=== PATIENT | female | born 1955 | race Caucasian/White ===

== ENCOUNTER 2020-09-19 10:05 | Emergency (ER) | payer BC ==
[~2020-09-19 10:05] MED LIST: ASPIRIN325 MG PO; BUSPIRONE HCL5 MG PO; FENOFIBRATE134 MG PO; LEVOTHYROXINE75 MCG PO; LISINOPRIL10 MG PO; MELOXICAM7.5 MG PO; MONTELUKAST SOD10 MG PO; NITROSTAT0.4 MG SL; NORVASC 5 MG TAB5 MG PO; PAXIL20 MG PO; PREMARIN0.3 MG PO; PRILOSEC OTC20 MG PO; TRAMADOL HCL50 MG PO; VYTORIN 10-801 EACH PO; ZANTAC150 MG PO
[2020-09-19 10:59] LABS: BUN/CREATININE RATIO 17 (0-10)
[2020-09-19 12:15] LABS: HEMOGLOBIN 14.7 gm/dl (12.3-15.3); RED BLOOD COUNT 4.88 M/UL (4.00-5.10)
[2020-09-19] MEDS ORDERED: ZOFRAN4 MG PO (12:20)
[2020-09-19] MEDS ORDERED: FLOMAX0.4 MG PO (12:20)
[2020-09-19] MEDS ORDERED: TORADOL 10 MG T10 MG PO (12:20)
== END 2020-09-19 13:25 | disposition home or self-care (01) ==
LOC: ER1 10:05
PROVIDERS: Physician Assistant
DX: N13.2 Hydronephrosis with renal and ureteral calculous obstruction (principal); K21.9 Gastro-esophageal reflux disease without esophagitis; E11.9 Type 2 diabetes mellitus without complications; Z90.710 Acquired absence of both cervix and uterus
CPT/HCPCS: 80053; 81001; 83690; 85025; 96374; 96375; 99284; J1885; J2270

== ENCOUNTER → 2021-01-03 | Outpatient (CLI) | payer BC ==
[~2021-01-03] MED LIST changes: +FLOMAX0.4 MG PO; +TORADOL 10 MG T10 MG PO; +ZOFRAN4 MG PO
== END ==
LOC: EXRD 12:45
DX: I25.10 Atherosclerotic heart disease of native coronary artery without angina pectoris (principal); I11.9 Hypertensive heart disease without heart failure; E11.9 Type 2 diabetes mellitus without complications; E78.00 Pure hypercholesterolemia, unspecified; M19.91 Primary osteoarthritis, unspecified site; E07.9 Disorder of thyroid, unspecified; G25.81 Restless legs syndrome; K21.9 Gastro-esophageal reflux disease without esophagitis; E55.9 Vitamin D deficiency, unspecified; F41.9 Anxiety disorder, unspecified; I25.2 Old myocardial infarction
CPT/HCPCS: 93925; 93970

== ENCOUNTER → 2021-07-19 | Outpatient (CLI) | payer BC | LOC: ECHO 10:14 → NM 13:00 → HEART 5 07-25 08:00 | DX: I20.9 Angina pectoris, unspecified (principal) | CPT/HCPCS: ECHO; 78452; 93017; 93306; A9502; J2785 ==